=== PATIENT | female | born 1995 | race Native Hawaiian/Other Pacific Islander ===

== ENCOUNTER 2017-07-03 20:30 | Emergency (ER) | payer BC ==
[~2017-07-03] VITALS: Ht 162.6 cm; Wt 81.6 kg
== END 2017-07-03 22:36 | disposition home or self-care (01) ==
LOC: ED 20:30
DX: S13.9XXA Sprain of joints and ligaments of unspecified parts of neck, initial encounter (principal); S16.1XXA Strain of muscle, fascia and tendon at neck level, initial encounter; S43.402A Unspecified sprain of left shoulder joint, initial encounter; S46.912A Strain of unspecified muscle, fascia and tendon at shoulder and upper arm level, left arm, initial encounter; S80.01XA Contusion of right knee, initial encounter; V43.52XA Car driver injured in collision with other type car in traffic accident, initial encounter
CPT/HCPCS: 96372; 99283; J1885

== ENCOUNTER 2017-08-12 17:45 | Emergency (ER) | payer BC ==
[~2017-08-12] VITALS: Ht 162.6 cm; Wt 81.6 kg
[2017-08-12] MEDS ORDERED: CYCL10TA35 PO (17:52)
[2017-08-12 18:19] LABS: PLATELET COUNT 375 K/uL (152-353)
== END 2017-08-12 21:45 | disposition home or self-care (01) ==
LOC: ED 17:45
DX: T78.3XXA Angioneurotic edema, initial encounter (principal); T78.40XA Allergy, unspecified, initial encounter; M75.52 Bursitis of left shoulder; J40 Bronchitis, not specified as acute or chronic
CPT/HCPCS: 85027; 96372; 99284; J0171; J1200; J2060; J2930

== ENCOUNTER 2018-02-09 18:10 | Emergency (ER) | payer BC ==
[~2018-02-09] VITALS: Ht 162.6 cm; Wt 87.5 kg
[~2018-02-09 18:10] MED LIST: 904272561 PO; CYCL10TA35 PO; FLUC150T PO
[2018-02-09 18:17] VITALS: TEMP 98.1
[2018-02-09 20:16] VITALS: BP 118/75
== END 2018-02-09 20:20 | disposition home or self-care (01) ==
LOC: ED 18:10
PROC: 0U9M0ZZ Drainage of Vulva, Open Approach (ICD-10-PCS; principal; 2018-02-09)
PROC: 0H97XZZ Drainage of Abdomen Skin, External Approach (ICD-10-PCS; 2018-02-09)
DX: N76.4 Abscess of vulva (principal); L02.211 Cutaneous abscess of abdominal wall
CPT/HCPCS: 87070; 87205; 99283

== ENCOUNTER 2019-03-02 13:42 | Emergency (ER) | payer BC ==
[~2019-03-02] VITALS: Ht 162.6 cm; Wt 87.5 kg
[2019-03-02 14:26] LABS: PLATELET COUNT 249 K/uL (152-353)
[2019-03-02 14:33] LABS: POTASSIUM 3.3 mmol/L (3.6-5.2)
[2019-03-02 15:36] VITALS: BP 121/70; TEMP 99.8
== END 2019-03-02 15:36 | disposition home or self-care (01) ==
LOC: ED 13:42
PROVIDERS: Emergency Medicine
DX: M79.18 Myalgia, other site (principal); J06.9 Acute upper respiratory infection, unspecified
CPT/HCPCS: 80053; 81000; 81025; 85027; 87502; 87651; 99283

== ENCOUNTER 2019-04-16 22:00 | Emergency (ER) | payer BC ==
[~2019-04-16] VITALS: Ht 162.6 cm; Wt 87.5 kg
[2019-04-16 23:16] LABS: PLATELET COUNT 330 K/uL (152-353)
[2019-04-16 23:23] LABS: POTASSIUM 3.7 mmol/L (3.6-5.2)
[2019-04-17 01:10] VITALS: BP 100/63; TEMP 98.1
== END 2019-04-17 01:10 | disposition home or self-care (01) ==
LOC: ED 22:00
PROVIDERS: Emergency Medicine
DX: R10.31 Right lower quadrant pain (principal); R14.1 Gas pain
CPT/HCPCS: 36415; 80053; 81000; 81025; 85027; 96360; 96365; 96374; 96375; 99284; J1885; J2405

== ENCOUNTER 2020-08-19 18:44 | Emergency (ER) | payer BC ==
[~2020-08-19] VITALS: Ht 162.6 cm; Wt 90.7 kg
[2020-08-19 18:57] VITALS: TEMP 102.5
[2020-08-19 20:04] LABS: PLATELET COUNT 260 K/uL (152-353)
[2020-08-19 20:27] LABS: POTASSIUM 3.6 mmol/L (3.6-5.2)
[2020-08-19 20:29] LABS: PARTIAL THROMBOPLASTIN TIME 27.6 SECONDS (24.5-33.6)
[2020-08-19 22:15] VITALS: BP 127/87
== END 2020-08-19 22:17 | disposition home or self-care (01) ==
LOC: ED 18:44
DX: U07.1 COVID-19 (principal)
CPT/HCPCS: 36415; 80053; 81000; 81025; 83605; 84484; 85027; 85610; 85730; 87040; 87502; 87635; 87651; 93005; 96360; 99284; U0003